=== PATIENT | male | born 1965 | race Two or more races ===

== ENCOUNTER 2017-01-19 11:55 | Emergency (ER) | payer BC ==
[~2017-01-19] VITALS: Ht 165.1 cm; Wt 74.8 kg
[2017-01-19 12:40] VITALS: BP 152/95
== END 2017-01-19 12:43 | disposition home or self-care (01) ==
LOC: ER 11:58
DX: S01.312D Laceration without foreign body of left ear, subsequent encounter (principal); Z48.02 Encounter for removal of sutures